=== PATIENT | male | born 1965 | race Caucasian/White ===

== ENCOUNTER 2017-09-13 16:16 | Emergency (ER) | payer OTHER ==
[2017-09-13 16:57] VITALS: BP 125/84
--- NOTE | 2017-09-13 17:55 | UC ---
Skin Complaint HPI - HPI Summary HPI Summary: 52 y/o male presents to the urgent care accompany by c/o pt states that he was bit by a tick 5 days ago to lt side. pt states he feels fatigued, balance is off. pt states that he has been in bed for the past 5 days. pt also states he has not had a dugan. - History of Current Complaint Chief Complaint: UCGeneralIllness Time Seen by Provider: 09/13/17 17:51 Stated Complaint: TICK BITE, FATIGUE Hx Obtained From: Patient, Family/Attendance Officer - Pain Intensity: 0 - Allergy/Home Medications Allergies/Adverse Reactions: Allergies Allergy/AdvReac Type Severity Reaction Status Date / Time No Known Allergies Allergy Verified 09/13/17 16:57 PMH/Surg Hx/FS Hx/Imm Hx - Surgical History Surgical History: None - Social History Alcohol Use: Occasionally Substance Use Type: None Smoking Status (MU): Light Every Day Tobacco Smoker Household Exposure Type: Cigarettes Physical Exam - Summary Physical Exam Summary: Vital Signs Reviewed: Yes General: well developed, well nourished male sitting in the examining table w/o any apparent distress. Eyes: Positive: Conjunctiva Clear - PERRLA, EOMI ENT: Positive: Normal ENT inspection, Hearing grossly normal, Pharynx normal, TMs normal Neck: Positive: Supple, Nontender, No Lymphadenopathy Respiratory: Positive: Chest nontender, Lungs clear, Normal breath sounds Cardiovascular: Positive: RRR, No Murmur, Pulses Normal Abdomen Description: Positive: Nontender, No Organomegaly, Soft. Negative: CVA Tenderness (R), CVA Tenderness (L) Bowel Sounds: Positive: Present Musculoskeletal: Positive: Strength Intact, ROM Intact, No Edema Neurological Exam: Normal Psychological Exam: Normal Skin: Positive: rashes - Left lateral side of mid back with tick bite with surrounding erythema, non tender to palpation. tick no longer present, no swelling or drainage observed. Triage Information Reviewed: Yes Vital Signs: Initial Vital Signs Temp 98.8 F 09/13/17 16:52 Pulse 85 09/13/17 16:52 Resp 18 09/13/17 16:52 BP 125/84 09/13/17 16:52 Pulse Ox 99 09/13/17 16:52 Course/Dx - Differential Diagnoses - Skin Complaint Differential Diagnoses: Abscess, Cellulitis, Tick Born Illness, Other - insect bite, bee sting - Diagnoses Provider Diagnoses: 1- Left lateral side of back w/ tick bite Discharge - Discharge Plan Condition: Stable Disposition: HOME Patient Education Materials: Tick Bite (ED) Referrals: Jaylen HARP,Zechariah Armstrong [Medical Doctor] - If Needed Desmond Cohen MD [Primary Care Provider] - 2 Weeks Additional Instructions: 1- Please observe the area for the development or Erythema Migrans for upto 30 days following exposure. Components of the tick saliva can cause transient erythema that should not be confused with Erythema Migrans. If you develop the bull's eye rash, fever, joint pains please return to the urgent care or f/u with your PCP or Dr York for further management. 2-Antibiotic prophylaxis with Doxycycline was given to you today to prevent lyme Disease. Lyme serology can be drawn in 2 weeks with your PCP to r/o Lyme disease since there is probability of negative results at early exposure. - Billing Disposition and Condition Condition: STABLE Disposition: Home
[2017-09-13] MEDS ORDERED: DOXYcycline CAP(*) 100 MG PO ONE (18:04)
--- NOTE | 2017-09-13 21:59 | UC ---
Skin Complaint HPI - HPI Summary HPI Summary: 52 y/o male presents to the urgent care c/o pt states that he was bit by a tick 5 days ago to lt side. pt states he feels fatigued, balance is off. pt states that he has been in bed for the past 5 days. pt also states he has not had a dugan. - History of Current Complaint Chief Complaint: UCGeneralIllness Time Seen by Provider: 09/13/17 17:51 Stated Complaint: TICK BITE, FATIGUE Pain Intensity: 0 Pain Scale Used: 0-10 Numeric - Allergy/Home Medications Allergies/Adverse Reactions: Allergies Allergy/AdvReac Type Severity Reaction Status Date / Time No Known Allergies Allergy Verified 09/13/17 16:57 PMH/Surg Hx/FS Hx/Imm Hx - Surgical History Surgical History: None - Social History Alcohol Use: Occasionally Substance Use Type: None Smoking Status (MU): Light Every Day Tobacco Smoker Household Exposure Type: Cigarettes Physical Exam Vital Signs: Initial Vital Signs Temp 98.8 F 09/13/17 16:52 Pulse 85 09/13/17 16:52 Resp 18 09/13/17 16:52 BP 125/84 09/13/17 16:52 Pulse Ox 99 09/13/17 16:52 Discharge - Discharge Plan Condition: Stable Disposition: HOME Patient Education Materials: Tick Bite (ED) Referrals: Jaylen HARP,Zechariah Armstrong [Medical Doctor] - If Needed Desmond Cohen MD [Primary Care Provider] - 2 Weeks Additional Instructions: 1- Please observe the area for the development or Erythema Migrans for upto 30 days following exposure. Components of the tick saliva can cause transient erythema that should not be confused with Erythema Migrans. If you develop the bull's eye rash, fever, joint pains please return to the urgent care or f/u with your PCP or Dr York for further management. 2-Antibiotic prophylaxis with Doxycycline was given to you today to prevent lyme Disease. Lyme serology can be drawn in 2 weeks with your PCP to r/o Lyme disease since there is probability of negative results at early exposure. - Billing Disposition and Condition Condition: STABLE Disposition: Home
== END 2017-09-13 18:17 | disposition home or self-care (01) ==
LOC: UCEAST 16:16
DX: T14.8XXA Other injury of unspecified body region, initial encounter (principal); R53.83 Other fatigue; F17.210 Nicotine dependence, cigarettes, uncomplicated; W57.XXXA Bitten or stung by nonvenomous insect and other nonvenomous arthropods, initial encounter; Y92.9 Unspecified place or not applicable
CPT/HCPCS: 99212; A9270-GY; G0463